=== PATIENT | female | born 1965 | race Caucasian/White ===

== ENCOUNTER 2017-06-02 09:14 | Outpatient (CLI) | payer BC ==
--- NOTE | 2017-06-02 11:35 | ULT ---
RENAL ULTRASOUND: History: Right renal mass. Comparison: None. FINDINGS: Real-time imaging of the right and left kidneys were performed. The right kidney measures 11.2. The l eft kidney 12.1 cm in size. There is a 1.2 cm hypoechoic area in the right renal pelvis which appears to represent a parapelvic cyst. Features that are pure cysts are difficult to determine given the po sition and small size. Bladder region is unremarkable. IMPRESSION: 1.2 cm probable parapelvic cyst involving the right kidney the smaller size and position within the r enal pelvis makes it difficult to show all characteristic features of the benign cyst by ultrasound, but I favor that this does represent a cyst. If there is any high clinical suspicion for a mass, then CT using renal mass protocol would be recommended. POS: MARYANNE
== END 2017-06-02 09:15 | disposition home or self-care (01) ==
LOC: ULT 09:14
PROVIDERS: ATTEND Surgery
DX: N28.89 Other specified disorders of kidney and ureter (principal)
CPT/HCPCS: 76770

== ENCOUNTER 2019-05-23 10:56 | Outpatient (CLI) | payer BC ==
--- NOTE | 2019-05-23 12:28 | ULT ---
RENAL ULTRASOUND HISTORY: History of renal mass COMPARISON: June 02, 2017 renal ultrasound FINDINGS: Right Kidney: Size: 11.3 x 5.1 x 5.1 Abnormality: There is a 1.2 cm peripelvic cyst which appears relatively stable to the prior exam. Thi s is seen within the superior pole of the right kidney. There is new mild right hydronephrosis. Left Kidney: Size: 11.8 x 6.7 x 6.2 cm. Abnormality: Normal cortical echotexture. No hydronephrosis Urinary bladder: 44.96 cc prevoid bladder volume. Postvoid bladder volume 1.9 cc IMPRESSION: 1. New mild right hydronephrosis. 2. Stable small 1.2 cm right renal peripelvic cyst
== END 2019-05-23 10:57 | disposition home or self-care (01) ==
LOC: BICULT 10:56
PROVIDERS: ATTEND Urology
DX: N28.89 Other specified disorders of kidney and ureter (principal); N28.1 Cyst of kidney, acquired; N13.30 Unspecified hydronephrosis
CPT/HCPCS: 76770